=== PATIENT | female | born 1985 | race Caucasian/White ===

== ENCOUNTER 2019-01-27 17:33 | Emergency (ER) | payer MEDICAID, OTHER ==
[~2019-01-27] VITALS: Ht 152.4 cm; Wt 60.0 kg
[~2019-01-27 17:33] MED LIST: NAPR-985 PO
[2019-01-27 17:35] VITALS: Ht 152.4 cm; Wt 60.0 kg
[2019-01-27] MEDS ORDERED: KETOROLAC 30 MG INJ IM STA (19:15)
--- NOTE | 2019-01-27 20:30 | ERD ---
ER Documentation Chief Complaint Chief Complaint LEFT BODY NUMBNESS INTERMITTENT X 1 YEAR HPI 34-year-old female with past medical history of asthma and migraines presenting to the emergency department complaining of headache which began earlier today while driving. She states she felt a peter of energy all over her body and then felt some numbness to her left arm and left leg which is improved since then. She did not take any medication for relief of symptoms. Headache is 7/10 in severity and constant. She reports similar symptoms in the past which her doctor said were related to her migraines. She denies any nausea, vomiting, diarrhea, chest pain, shortness of breath, or other symptoms at this time. ROS All systems reviewed and are negative except as per history of present illness. Medications Home Meds Active Scripts Naproxen* (Naprosyn*) 500 Mg Tablet, 500 MG PO BID PRN for PAIN AND/OR INFLAMMATION, #30 TAB Prov:DAVINA LUCERO PA-C 01/27/19 Allergies Allergies: Coded Allergies: No Known Allergy (Verified Allergy, Mild, 03/28/10) PMhx/Soc History of Surgery: Yes ( x1) Anesthesia Reaction: No Hx Neurological Disorder: Yes (migraines) Hx Respiratory Disorders: No Hx Cardiac Disorders: No Hx Psychiatric Problems: No Hx Miscellaneous Medical Probl: No Hx Alcohol Use: No Hx Substance Use: No Hx Tobacco Use: No Smoking Status: Never smoker Physical Exam Vitals Vital Signs Date Temp Pulse Resp B/P (MAP) Pulse Ox O2 O2 Flow FiO2 Time Delivery Rate 01/27/19 99.4 77 20 141/88 99 17:35 (105) Physical Exam Const: No acute distress Head: Atraumatic Eyes: Normal Conjunctiva ENT: Normal External Ears, Nose and Mouth. Neck: Full range of motion. No meningismus. Resp: Clear to auscultation bilaterally Cardio: Regular rate and rhythm, no murmurs Abd: Soft, non tender, non distended. Normal bowel sounds Skin: No petechiae or rashes Back: No midline or flank tenderness Neuro: M/S: Alert and oriented Face: EOMI, face and pharynx with normal sensation and function Motor: Normal strength throughout Sensation: Normal sensation throughout Speech: Normal Cerebel: Normal coordination Normal gait Normal finger to nose Ext: No cyanosis, or edema Neur: Awake and alert Psych: Normal Mood and Affect Result Diagram: 01/27/19192601/27/191926 Results 24 hrs Laboratory Tests Test 01/27/19 19:27 01/27/19 19:37 White Blood Count 8.8 10^3/ul Red Blood Count 4.61 10^6/ul Hemoglobin 13.6 g/dl Hematocrit 42.3 % Mean Corpuscular Volume 91.8 fl Mean Corpuscular Hemoglobin 29.5 pg Mean Corpuscular Hemoglobin Concent 32.2 g/dl Red Cell Distribution Width 14.6 % Platelet Count 285 10^3/UL Mean Platelet Volume 10.9 fl Immature Granulocytes % 0.200 % Neutrophils % 71.0 % Lymphocytes % 19.9 % Monocytes % 7.7 % Eosinophils % 0.9 % Basophils % 0.3 % Nucleated Red Blood Cells % 0.0 /100WBC Immature Granulocytes # 0.020 10^3/ul Neutrophils # 6.2 10^3/ul Lymphocytes # 1.8 10^3/ul Monocytes # 0.7 10^3/ul Eosinophils # 0.1 10^3/ul Basophils # 0.0 10^3/ul Nucleated Red Blood Cells # 0.0 10^3/ul Prothrombin Time 12.3 Sec Prothrombin Time Ratio 1.0 INR International Normalized Ratio 0.90 Activated Partial Thromboplast Time 28.4 Sec Urine Color YELLOW Urine Clarity SLIGHTLY CLOUDY Urine pH 6.0 Urine Specific Sophia 1.025 Urine Ketones 1+ mg/dL Urine Nitrite NEGATIVE mg/dL Urine Bilirubin NEGATIVE mg/dL Urine Urobilinogen NEGATIVE mg/dL Urine Leukocyte Esterase TRACE Denisse/ul Urine Microscopic RBC 5 /HPF Urine Microscopic WBC 4 /HPF Urine Squamous Epithelial Cells FEW /HPF Urine Hemoglobin NEGATIVE mg/dL Urine Glucose NEGATIVE mg/dL Urine Total Protein NEGATIVE mg/dl Sodium Level 140 mmol/L Potassium Level 4.2 mmol/L Chloride Level 105 mmol/L Carbon Dioxide Level 25 mmol/L Anion Gap 10 Blood Urea Nitrogen 22 mg/dl Creatinine 0.75 mg/dl Est Glomerular Filtrat Rate mL/min > 60 mL/min Glucose Level 96 mg/dl Calcium Level 9.4 mg/dl POC Beta HCG, Qualitative NEGATIVE Current Medications Medications Dose Sig/Darlene Start Time Status Last (Trade) Ordered Route PRN Stop Time Admin Dose Reason Admin Ketorolac 30 mg ONCE STAT 01/27/19 DC 01/27/19 Tromethamine IM 19:15 01/27/19 19:37 (Toradol) 19:18 [place] [address] Radiology Main Line: [phone] DIAGNOSTIC IMAGING REPORT Patient: NAY DENISE : 1985 Age: 34 Sex: F MR #: [id number] DOS: 01/27/19 191 Ordering MD: DAVINA LUCERO PA-C Location: [facility] Room/Bed: PROCEDURE: CT Brain without contrast. CLINICAL INDICATION: Headache. TECHNIQUE: A CT of the brain was performed on a multi-slice CT scanner utilizing axial imaging from the skull base through the vertex without IV contrast. Multiplanar reformatted images were made. Images were reviewed on a PACS workstation. One or more the following dose reduction techniques were utilized: Automated exposure control, adjustment of mA/ or kV according to patient's size, or use of iterative reconstruction technique. DICOM images are available for review. The CTDIvol is 39.5 mGy and the DLP is 634.2 mGycm. COMPARISON: None FINDINGS: There is no intracranial hemorrhage, mass effect, or midline shift. No extra- axial fluid collection is seen. The ventricles and sulci are normal in size and configuration. The density of the brain is normal, and the domínguez white matter differentiation appears well-preserved. The visualized paranasal sinuses and osseous structures are grossly unremarkable. IMPRESSION: 1. No evidence of acute intracranial pathology. 2. The brain is normal in appearance. RPTAT: HJAH .Maryana Gimenez MD, MD Date Time Electronically viewed and signed by .Maryana Gimenez MD, on 01/27/2019 20:05 .H/ CC: DAVINA LUCERO PA-C [id number] Procedures/MDM 34-year-old female presenting to the emergency department with vague complaints of headache and numbness to the left side of her body which is improved since the symptoms onset. Patient's neurological examination is within normal limits. Patient was administered Toradol and was significantly improved on reevaluation. Head CT was obtained which showed no acute abnormalities. The full report interpreted by the radiologist may be viewed above. CBC: no e/o of systemic infection or severe anemia CMP: no e/o severe acidosis, alkalosis, renal failure, diabetic ketoacidosis, liver disease Lipase: no e/o pancreatitis PT/INR: normal coagulation Urine: no e/o acute infection or hematuria Urine : Negative Medical decision making: Patient symptoms may be secondary to anxiety or other nonemergent process. I doubt CVA, TIA, status migrainosus, or other emergencies. Patient's neurologic symptoms have stabilized while they have been evaluated in the department and are appropriate for outpatient work up. No evidence of meningitis, intracranial bleed, seizure, stroke, or elevated intracranial pressure. No evidence of life-threatening pathology at time of discharge. Pt/family in agreement with discharge plan/diagnosis. Pt/family advised to return immediately with any new or worsening symptoms. Follow-up with primary care physician within the next 1-2 days. Patient's blood pressure was elevated (>120/80) but appears stable without evidence of hypertension emergency or urgency. The patient is to follow-up and pursue outpatient monitoring and therapy with their primary care physician within 1 week and return immediately if they have any new, worsening, or concerning symptoms. Departure Diagnosis: Primary Impression: Headache Condition: Fair Patient Instructions: Self-Care for Headaches Referrals: [facility] YOU HAVE RECEIVED A MEDICAL SCREENING EXAM AND THE RESULTS INDICATE THAT YOU DO NOT HAVE A CONDITION THAT REQUIRES URGENT TREATMENT IN THE EMERGENCY DEPARTMENT. FURTHER EVALUATION AND TREATMENT OF YOUR CONDITION CAN WAIT UNTIL YOU ARE SEEN IN YOUR DOCTORS OFFICE WITHIN THE NEXT 1-2 DAYS. IT IS YOUR RESPONSIBILITY TO MAKE AN APPOINTMENT FOR FOLOW-UP CARE. IF YOU HAVE A PRIMARY DOCTOR --you should call your primary doctor and schedule an appointment IF YOU DO NOT HAVE A PRIMARY DOCTOR YOU CAN CALL OUR PHYSICIAN REFERRAL HOTLINE AT IF YOU CAN NOT AFFORD TO SEE A PHYSICIAN YOU CAN CHOSE FROM THE FOLLOWING [facility] [address] [facility]. [facility] [address] [facility] [facility] [address] [facility] [facility] [address] [facility] [address] [facility] [address] Additional Instructions: Call your primary care doctor TOMORROW for an appointment during the next 1-2 days.See the doctor sooner or return here if your condition worsens before your appointment time. DAVINA LUCERO PA-C Jan 27, 2019 20:30
[2019-01-27 20:43] VITALS: BP 109/69; PULSE 65; RESP 17
== END 2019-01-27 20:43 | disposition home or self-care (01) ==
LOC: FTE 17:33
DX: R51 Headache (principal); J45.909 Unspecified asthma, uncomplicated
CPT/HCPCS: 36415; 70450; 80048; 81001; 81025; 85025; 85610; 85730; 96372; J1885; Z7502